=== PATIENT | male | born 1950 | race Caucasian/White ===

== ENCOUNTER 2025-01-29 11:28 | Emergency (ER) | payer MEDICARE, OTHER ==
[~2025-01-29] VITALS: Ht 182.9 cm; Wt 175.0 kg
[~2025-01-29 11:28] MED LIST: ASPI-611 PO; ATOR20TA66 PO; CARV-49 PO; FURO80TA87 PO; LISI20TA28 PO; NITR0.4T48 SL; PANT-47 PO
[2025-01-29 11:36] VITALS: TEMP 97
[2025-01-29] MEDS: diazepam 5mg tablet PO ONE (15:19)
[2025-01-29] MEDS: ketorolac trometh 15mg/ml vial 15 MG/ML ML IM ONE (15:19)
[2025-01-29 15:42] VITALS: BP 178/86; PULSE 61; RESP 18; O2SAT 96
== END 2025-01-29 17:31 | disposition home or self-care (01) ==
LOC: ER 11:29
DX: M17.11 Unilateral primary osteoarthritis, right knee (principal); E11.9 Type 2 diabetes mellitus without complications; I10 Essential (primary) hypertension; I25.10 Atherosclerotic heart disease of native coronary artery without angina pectoris; K21.9 Gastro-esophageal reflux disease without esophagitis; Z95.1 Presence of aortocoronary bypass graft; Z79.82 Long term (current) use of aspirin
CPT/HCPCS: 73560; 96372; 99284; J1885

== ENCOUNTER 2025-10-30 06:14 | Day surgery (SDC) | payer MEDICARE ==
[2025-10-29 12:46] LABS: MEAN PLATELET VOLUME 8.4 FL (7.4-10.4); RED CELL DISTRIBUTION WIDTH 14.9 % (11.5-14.5)
[2025-10-29 13:01] LABS: INR 1.3 INR
[2025-10-29 13:04] LABS: CREATININE 1.05 MG/DL (0.60-1.10); TOTAL CARBON DIOXIDE 29.3 MMOL/L (24-32); eGFR 69 ML/MIN
[~2025-10-30] VITALS: Ht 180.3 cm; Wt 132.9 kg
[~2025-10-30 06:14] MED LIST changes: -ATOR20TA66 PO; -CARV-49 PO; -LISI20TA28 PO; -NITR0.4T48 SL; -PANT-47 PO
[2025-10-30] MEDS ORDERED: morphine 10mg/ml inj. IV ONE (06:40)
[2025-10-30] MEDS ORDERED: MIDAZolam 1mg/ml 10ml vial IV ONE (06:40)
[2025-10-30] MEDS ORDERED: amiodarone 150mg/dext, iso-os 100 ML IV ONE (06:40)
[2025-10-30] MEDS ORDERED: normal saline 1000ml 1,000 ML IV SCH (06:40)
[2025-10-30] MEDS ORDERED: atropine 0.1mg/ml 10ml syringe IV ONE (06:40)
--- NOTE | 2025-10-30 06:47 | ELECTROCARDIOGRAPH REPORT ---
[facility] Test Date: 2025-10-30 Test Time: 06:45:24 Pat Name: STONE BLANCHARD Department: [facility] Patient ID: [facility]-[id number] Room: Gender: M Towel Inspector: DAPHNEY : 1950 Requested By: SCOOTER DORSEY Order Number: [id number] Reading MD: Dr. KORINA Dorsey Measurements Intervals [place] Rate: 70 P: 0 MS: 0 QRS: 54 QRSD: 133 T: 0 QT: 531 QTc: 574 Interpretive Statements Atrial fibrillation Multiple ventricular premature complexes Nonspecific intraventricular conduction delay Borderline repolarization abnormality Electronically Signed On 10-30-2025 17:32:[address] KORINA Dorsey Please click the below link to view image of tracing.
[2025-10-30] MEDS ORDERED: ATOR40TA72 (06:51)
[2025-10-30] MEDS ORDERED: APIX5TAB3 PO (06:51)
[2025-10-30] MEDS ORDERED: CARV3.122 PO (06:51)
[2025-10-30] MEDS ORDERED: IBUP-862 PO (06:51)
[2025-10-30] MEDS ORDERED: AMIO200T76 PO (06:51)
[2025-10-30] MEDS ORDERED: TIRZ5PEN INJ (06:51)
[2025-10-30] MEDS ORDERED: PANT40TA54 PO (06:51)
[2025-10-30] MEDS ORDERED: FURO40TA4 PO (06:51)
[2025-10-30 06:55] VITALS: BP 187/83; PULSE 56; RESP 15; TEMP 98; O2SAT 99
[2025-10-30 07:45] VITALS: RESP 15; O2SAT 96
[2025-10-30] MEDS ORDERED: atropine 0.1mg/ml 10ml syringe ONE (07:46)
[2025-10-30] MEDS ORDERED: amiodarone 50MG/ML inj IV ONE (07:46)
[2025-10-30] MEDS ORDERED: midazolam 1 mg/ML 2ml injection ONE ×2 (07:46→08:05)
[2025-10-30] MEDS ORDERED: fentaNYL/PF 50MCG/1 ML 2ML syringe ONE (07:46)
[2025-10-30 08:33] VITALS: BP 155/80; PULSE 62; RESP 15; O2SAT 97
--- NOTE | 2025-10-30 08:37 | CARDIOLOGY REPORT ---
DATE OF SERVICE: 10/30/2025 DICTATING PHYSICIAN: KOIRNA Bassett MD PRIMARY SURGEON: Dr. Aguirre. INDICATION: The patient is a 75-year-old male with history of diabetes, hypertension, hyperlipidemia, diastolic heart failure, and paroxysmal atrial fibrillation. [facility], found to have UTI and HIMANSHU and AFib. Subsequently, he was seen in the office, was started on amiodarone, Eliquis, and carvedilol, and the patient continued to have persistent A-fib. After discussing risks and benefits of allergy options, the patient prefers to proceed with electrical cardioversion. Risks, benefits, and alternative options were discussed. Informed consent obtained. DESCRIPTION OF PROCEDURE: Anterior and posterior pads were used for biphasic electrical energy 200 joules per hour x 2 convert normal sinus rhythm, remained in normal sinus rhythm. IMPRESSION: A 75-year-old male with persistent A-fib converted to normal sinus rhythm. Recommended continued diet, weight loss, and exercise program. Continue Eliquis, amiodarone, and carvedilol and recommend evaluation. The patient has sleep apnea and compliant with the CPAP. KORINA Bassett MD TID: [id number] RECEIPT: [id number] BC/KATHY cc: Stephen Aguirre MD
[2025-10-30 08:45] VITALS: BP 162/78; PULSE 60; RESP 20; O2SAT 98
--- NOTE | 2025-10-30 08:46 | ELECTROCARDIOGRAPH REPORT ---
[facility] Test Date: 2025-10-30 Test Time: 08:45:23 Pat Name: STONE BLANCHARD Department: [facility] Patient ID: [facility]-[id number] Room: Gender: M Director Presales: DAPHNEY : 1950 Requested By: SCOOTER DORSEY Order Number: [id number] Reading MD: Dr. KORINA Dorsey Measurements Intervals [place] Rate: 60 P: 14 CA: 288 QRS: 72 QRSD: 132 T: 56 QT: 506 QTc: 506 Interpretive Statements Sinus rhythm Multiple ventricular premature complexes Prolonged CA interval Nonspecific intraventricular conduction delay Borderline abnrm T, anterolateral leads Electronically Signed On 10-30-2025 17:32:[address] KORINA Dorsey Please click the below link to view image of tracing.
[2025-10-30 09:00] VITALS: BP 153/74; PULSE 60; RESP 16; O2SAT 97
[2025-10-30 09:19] VITALS: BP 161/85; PULSE 61; RESP 18; O2SAT 96
== END 2025-10-30 09:30 | disposition home or self-care (01) ==
LOC: SSTAY O 06:14
PROVIDERS: ATTEND Internal Medicine Cardiovascular Disease
DX: I48.0 Paroxysmal atrial fibrillation (principal); R94.31 Abnormal electrocardiogram [ECG] [EKG]; I49.3 Ventricular premature depolarization; I11.0 Hypertensive heart disease with heart failure; I50.32 Chronic diastolic (congestive) heart failure; E11.9 Type 2 diabetes mellitus without complications; E78.5 Hyperlipidemia, unspecified; G47.30 Sleep apnea, unspecified; Z79.01 Long term (current) use of anticoagulants; Z79.1 Long term (current) use of non-steroidal anti-inflammatories (NSAID); Z79.891 Long term (current) use of opiate analgesic; Z79.899 Other long term (current) drug therapy; Z90.49 Acquired absence of other specified parts of digestive tract; Z90.89 Acquired absence of other organs; Z98.890 Other specified postprocedural states
CPT/HCPCS: 36415; 80048; 85025; 85610; 92960; 93005; J2250; J3010; J7030; 99152; 99153; J0282; J0461